=== PATIENT | male | born 1995 | race African-American/Black ===

== ENCOUNTER 2016-05-17 19:18 | Emergency (ER) | payer BC ==
[~2016-05-17] VITALS: Ht 190.5 cm; Wt 145.9 kg
[~2016-05-17 19:18] MED LIST: FLEXERIL10 MG PO; NAPROSYN500 MG PO
[2016-05-17 20:26] LABS: INFLUENZA A VIRAL ANTIGEN POSITIVE; INFLUENZA B VIRAL ANTIGEN NEGATIVE
[2016-05-17] MEDS ORDERED: TAMIFLU75 MG PO (20:38)
[2016-05-17] MEDS ORDERED: ZOFRAN ODT4 MG PO (20:41)
[2016-05-17 20:58] VITALS: BP 134/69
== END 2016-05-17 21:00 | disposition home or self-care (01) ==
LOC: EME 19:18
DX: J10.1 Influenza due to other identified influenza virus with other respiratory manifestations (principal); R50.81 Fever presenting with conditions classified elsewhere
CPT/HCPCS: 71020; 87502; 87651 90; 99281; 99284

== ENCOUNTER 2017-01-28 22:17 | Emergency (ER) | payer BC ==
[~2017-01-28] VITALS: Ht 193 cm; Wt 143.9 kg
[~2017-01-28 22:17] MED LIST changes: +TAMIFLU75 MG PO; +ZANTAC150 MG PO; +ZOFRAN ODT4 MG PO
[2017-01-28 22:19] VITALS: BP 134/100
== END 2017-01-29 00:31 | disposition home or self-care (01) ==
LOC: EME 22:17
PROC: 3E0234Z Introduction of Serum, Toxoid and Vaccine into Muscle, Percutaneous Approach (ICD-10-PCS; principal; 2017-01-28)
DX: S91.331A Puncture wound without foreign body, right foot, initial encounter (principal); W45.0XXA Nail entering through skin, initial encounter; W11.XXXA Fall on and from ladder, initial encounter; Z23 Encounter for immunization; F17.200 Nicotine dependence, unspecified, uncomplicated
CPT/HCPCS: 73630; 99281; 99284

== ENCOUNTER 2017-08-23 20:26 | Emergency (ER) | payer BC ==
[~2017-08-23] VITALS: Ht 193 cm; Wt 148.2 kg
[2017-08-23 20:35] VITALS: BP 126/91
[2017-08-23] MEDS ORDERED: ZITHROMAX250 MG PO (21:44)
[2017-08-23] MEDS ORDERED: DELTASONE20 M1 PO (21:44)
== END 2017-08-23 22:47 | disposition home or self-care (01) ==
LOC: EME 20:26
DX: J40 Bronchitis, not specified as acute or chronic (principal); F17.200 Nicotine dependence, unspecified, uncomplicated
CPT/HCPCS: 71046; 93005; 94640; 99281; 99285; J7512